=== PATIENT | male | born 1980 | race American Indian/Alaskan Native ===

== ENCOUNTER 2018-04-11 09:25 | Emergency (ER) | payer SELFPAY ==
[2018-04-11 09:51] VITALS: BP 130/90
== END 2018-04-11 13:22 | disposition left against medical advice (07) ==
LOC: ED 09:25
DX: H57.8 Other specified disorders of eye and adnexa (principal); Z53.21 Procedure and treatment not carried out due to patient leaving prior to being seen by health care provider